=== PATIENT | female | born 1975 | race African-American/Black ===

== ENCOUNTER 2022-07-29 06:33 | Observation (INO) | payer BC ==
[2022-07-29 06:49] VITALS: BMI 45.1
[2022-07-29] MEDS ORDERED: ADENOSINE 6 MG/2 ML VIAL IVPUSH ONE ×3 (06:53→06:54)
[2022-07-29] MEDS ORDERED: MAGNESIUM 1GM/D5W - 1 GM/100 ML IVPB IVPB ONE (07:14)
[2022-07-29] MEDS ORDERED: SODIUM CHLORIDE 0.9% 500 ML INFUS.BAG IV ONE (07:18)
[2022-07-29 07:25] LABS: HEMATOCRIT 27.1 % (32.4-45.2); HEMOGLOBIN 8.1 GM/dL (10.7-15.3); MCHC 29.9 g/dl (32.0-36.0); MEAN CELL VOLUME 64.5 fl (80-96); MEAN PLT VOLUME 8.4 fl (7.5-11.1); PLATELET COUNT 66 10^3/uL (134-434); RDW 23.6 % (11.6-15.6); WHITE BLOOD COUNT 6.3 K/mm3 (4.0-10.0)
[2022-07-29 07:30] LABS: MCH 19.3 pg (25.7-33.7)
[2022-07-29] MEDS ORDERED: FOLIC ACID INJECTION - 1 MG, THIAMINE HCL 100 MG, MULTIVIT INJECTION ADULT 10 ML in SOD... IVPB ONE (07:36)
[2022-07-29 07:37] LABS: INR 0.91 (0.83-1.09); PROTHROMBIN TIME (PATIENT) 10.6 SEC (9.7-13.0)
[2022-07-29 07:40] LABS: ACTIVATED PTT 22.6 SECONDS (25.2-36.5)
[2022-07-29 07:41] LABS: CHLORIDE 104 mmol/L (98-107); POTASSIUM 5.2 mmol/L (3.5-5.1); SODIUM 138 mmol/L (136-145)
[2022-07-29 07:43] LABS: CALCIUM 9.2 mg/dL (8.5-10.1)
[2022-07-29 07:44] LABS: ALBUMIN 3.6 g/dl (3.4-5.0); ANION GAP 11 MMOL/L (8-16); BLOOD UREA NITROGEN 11.9 mg/dL (7-18); CO2 23 mmol/L (21-32); GLUCOSE,RANDOM 130 mg/dL (74-106); MAGNESIUM 1.5 mg/dL (1.8-2.4)
[2022-07-29 07:46] LABS: SGPT/ALT 31 U/L (13-61)
[2022-07-29 07:47] LABS: CREATININE 0.8 mg/dL (0.55-1.3); SGOT/AST 56 U/L (15-37)
[2022-07-29 07:48] LABS: BILIRUBIN,TOTAL 0.4 mg/dL (0.2-1)
[2022-07-29 07:49] LABS: ALK PHOS 66 U/L (45-117)
[2022-07-29 07:52] LABS: N-TERMINAL BNP 360.8 pg/ml (5-125)
[2022-07-29 08:37] LABS: COCAINE, UR NEGATIVE (NEGATIVE); OPIATES, URI NEGATIVE (NEGATIVE)
[2022-07-29 08:38] LABS: METHADONE, UR NEGATIVE (NEGATIVE); PHENCYCLIDINE,URINE NEGATIVE (NEGATIVE); URINE BARBITURATES NEGATIVE (NEGATIVE); URINE BENZODIAZEPINES NEGATIVE (NEGATIVE)
[2022-07-29 08:40] LABS: URINE AMPHETAMINES NEGATIVE (NEGATIVE)
[2022-07-29] MEDS ORDERED: LORazepam 1 MG TABLET PO PRN (11:20)
[2022-07-29] MEDS ORDERED: metoPROLOL SUCCINATE 25 MG TAB.SR.24H (FP) PO SCH (11:20)
[2022-07-29] MEDS ORDERED: ASPIRIN 81 MG CHEWABLE TABLETS PO SCH (11:30)
[2022-07-29] MEDS ORDERED: MAGNESIUM SULF 50% (8.12 MEQ/2 ML-1 GM VIAL) IVPB ONE (12:28)
[2022-07-29] MEDS ORDERED: metoPROLOL SUCCINATE 25 MG TAB.SR.24H (FP) PO ONE (13:39)
[2022-07-29] MEDS ORDERED: ASPIRIN 81 MG CHEWABLE TABLETS ONE (13:39)
[2022-07-29 13:40] VITALS: BP 152/80; RESP 20; TEMP 98.2
[2022-07-29] MEDS ORDERED: MAGNESIUM SULFATE IN WATER 2 GM/50 ML IVPB IVPB ONE (13:40)
[2022-07-29 13:51] VITALS: PULSE 65
[2022-07-29] MEDS ORDERED: ENOXAPARIN NA (PORCINE) 40 MG/0.4 ML DISP.SYRIN SQ SCH (22:00)
[2022-07-30] MEDS ORDERED: ASPIRIN COATED 81 MG TABLET.EC PO SCH (10:00)
== END 2022-07-29 13:22 | disposition short-term general hospital (02) ==
LOC: JER 06:33 → JERBED 07:59
PROVIDERS: ADMIT Internal Medicine; ATTEND Internal Medicine
PROC: 3E033GC Introduction of Other Therapeutic Substance into Peripheral Vein, Percutaneous Approach (ICD-10-PCS; principal; 2022-07-29)
PROC: 3E0337Z Introduction of Electrolytic and Water Balance Substance into Peripheral Vein, Percutaneous Approach (ICD-10-PCS; 2022-07-29)
DX: I49.9 Cardiac arrhythmia, unspecified (principal); R00.0 Tachycardia, unspecified; F10.129 Alcohol abuse with intoxication, unspecified; R00.2 Palpitations; Z98.84 Bariatric surgery status; E66.01 Morbid (severe) obesity due to excess calories; Z68.42 Body mass index [BMI] 45.0-49.9, adult; H53.8 Other visual disturbances; R53.1 Weakness
CPT/HCPCS: 0241U-QW; 36415; 70450-TC; 71045-TC-FY; 72125-TC; 80053; 80307; 82962; 83735; 83880; 84100; 84484; 84703; 85027; 85045; 85610; 85730; 93005; 93010; 93306-TC; 93880-TC; 96365; 96367; 96375; 99291; G0378

== ENCOUNTER 2022-07-30 21:24 | Inpatient (IN) | payer BC, OTHER ==
[2022-07-30 22:11] VITALS: BMI 45.1
[2022-07-30] MEDS ORDERED: guaiFENesin 600 MG TABLET.ER (FP) PO PRN (23:24)
[2022-07-30] MEDS ORDERED: P-EPHED 60MG/TRIPROLIDI 2.5MG TABLET PO PRN (23:24)
[2022-07-30] MEDS ORDERED: BISMUTH SUBSALICYLATE 524 MG/30 ML PO PRN (23:24)
[2022-07-30] MEDS ORDERED: MAG HYDROX/AL HYDROX/SIMETH 30 ML UNIT-DOSE CUP PO PRN (23:24)
[2022-07-30] MEDS ORDERED: POLYETHYLENE GLYCOL (HEALTHYLAX) 3350 17 GM PACKET PO PRN (23:24)
[2022-07-30] MEDS ORDERED: BENZONATATE 200 MG CAPSULE PO PRN (23:24)
[2022-07-30] MEDS ORDERED: LOPERAMIDE HCL 2 MG CAPSULE PO PRN (23:24)
[2022-07-30] MEDS ORDERED: DICYCLOMINE HCL 10 MG CAPSULE PO PRN (23:24)
[2022-07-30] MEDS ORDERED: MAGNESIUM HYDROX 2400MG/30ML ORAL SUSPENSION 30 ML CUP PO PRN (23:24)
[2022-07-30] MEDS ORDERED: BENZOCAINE/MENTHOL (CHLORASEPTIC ) LOZENGE MM PRN (23:24)
[2022-07-30] MEDS ORDERED: IBUPROFEN 600 MG TABLET (FP) PO PRN (23:24)
[2022-07-30] MEDS ORDERED: METHOCARBAMOL 500 MG TABLET PO PRN (23:24)
[2022-07-30] MEDS ORDERED: ACETAMINOPHEN 325 MG TABLET (FP) PO PRN ×2 (23:24)
[2022-07-30] MEDS ORDERED: IBUPROFEN 400 MG TABLET (FP) PO PRN (23:24)
[2022-07-30] MEDS ORDERED: ONDANSETRON *ODT* 4 MG TABLET SL PRN (23:24)
[2022-07-30] MEDS ORDERED: chlordiazePOXIDE HCL 25 MG CAPSULE PO PRN (23:27)
[2022-07-31] MEDS: chlordiazePOXIDE HCL 25 MG CAPSULE PO SCH ×4 (05:50→22:16)
[2022-07-31] MEDS: PRENATAL VITAMINS W/ FOLIC ACID TABLET (FP) PO SCH (10:37)
[2022-07-31] MEDS: metoPROLOL SUCCINATE 25 MG TAB.SR.24H (FP) PO SCH (11:33)
[2022-07-31] MEDS: MELATONIN 5 MG TABLETS PO PRN (22:15)
[2022-07-31] MEDS: THIAMINE HCL 100 MG TABLET (FP) PO SCH (22:15)
[2022-08-01] MEDS: chlordiazePOXIDE HCL 25 MG CAPSULE PO SCH ×5 (05:36→22:14)
[2022-08-01] MEDS: PRENATAL VITAMINS W/ FOLIC ACID TABLET (FP) PO SCH (10:17)
[2022-08-01] MEDS: FERROUS SO4 325 MG TABLET (FP) PO SCH (10:17)
[2022-08-01] MEDS: metoPROLOL SUCCINATE 25 MG TAB.SR.24H (FP) PO SCH (10:19)
[2022-08-01] MEDS: MELATONIN 5 MG TABLETS PO PRN (22:14)
[2022-08-01] MEDS: THIAMINE HCL 100 MG TABLET (FP) PO SCH (22:14)
[2022-08-02] MEDS ORDERED: chlordiazePOXIDE HCL 10 MG CAPSULE PO PRN
[2022-08-02] MEDS: chlordiazePOXIDE HCL 10 MG CAPSULE PO SCH ×4 (05:13→22:12)
[2022-08-02] MEDS: PRENATAL VITAMINS W/ FOLIC ACID TABLET (FP) PO SCH (10:31)
[2022-08-02] MEDS: metoPROLOL SUCCINATE 25 MG TAB.SR.24H (FP) PO SCH (10:31)
[2022-08-02] MEDS: FERROUS SO4 325 MG TABLET (FP) PO SCH (10:31)
[2022-08-02] MEDS: MAGNESIUM OXIDE 400 MG TABLET (FP) PO SCH ×2 (11:56→22:13)
[2022-08-02] MEDS: THIAMINE HCL 100 MG TABLET (FP) PO SCH (22:12)
[2022-08-02] MEDS: MELATONIN 5 MG TABLETS PO PRN (22:12)
[2022-08-03] MEDS ORDERED: chlordiazePOXIDE HCL 10 MG CAPSULE PO SCH (05:00)
[2022-08-03] MEDS ORDERED: chlordiazePOXIDE HCL 10 MG CAPSULE PO ONE (05:00)
[2022-08-03 06:28] VITALS: BP 112/67; PULSE 65; RESP 17; TEMP 97.6
[2022-08-04] MEDS ORDERED: chlordiazePOXIDE HCL 10 MG CAPSULE PO ONE (05:00)
== END 2022-08-03 07:35 | disposition home or self-care (01) | DRG 897 ==
LOC: YASAS 21:24 → Y6N 23:25
PROVIDERS: ADMIT Allergy & Immunology; ATTEND Surgery
PROC: HZ2ZZZZ Detoxification Services for Substance Abuse Treatment (ICD-10-PCS; principal; 2022-07-31)
DX: F10.230 Alcohol dependence with withdrawal, uncomplicated (principal); F10.282 Alcohol dependence with alcohol-induced sleep disorder; F10.24 Alcohol dependence with alcohol-induced mood disorder; F41.9 Anxiety disorder, unspecified; D69.6 Thrombocytopenia, unspecified; D64.9 Anemia, unspecified; I49.9 Cardiac arrhythmia, unspecified; M54.50 Low back pain, unspecified; G89.29 Other chronic pain; R73.9 Hyperglycemia, unspecified
CPT/HCPCS: 81025

== ENCOUNTER 2022-12-24 09:03 | Observation (INO) | payer BC, OTHER ==
[2022-12-24 09:13] VITALS: BMI 45.1
[2022-12-24 10:24] LABS: BASO % 1.3 % (0-2.0); EOS % 0.9 % (0-4.5); HEMOGLOBIN 12.2 GM/dL (10.7-15.3); LYMPH % 34.3 % (8-40); MCH 27.1 pg (25.7-33.7); MEAN CELL VOLUME 82.2 fl (80-96); MEAN PLT VOLUME 8.3 fl (7.5-11.1); MONO % 7.4 % (3.8-10.2); NEUT % 56.1 % (42.8-82.8); PLATELET COUNT 252 10^3/uL (134-434); RBC 4.51 M/mm3 (3.60-5.2); RDW 24.3 % (11.6-15.6); WHITE BLOOD COUNT 5.5 K/mm3 (4.0-10.0)
[2022-12-24 10:32] LABS: CO2 30 mmol/L (21-32); MAGNESIUM 1.9 mg/dL (1.8-2.4)
[2022-12-24 10:34] LABS: ACTIVATED PTT 26.1 SECONDS (25.2-36.5); INR 0.94 (0.83-1.09); PROTHROMBIN TIME (PATIENT) 10.9 SEC (9.7-13.0)
[2022-12-24 10:35] LABS: ALBUMIN 3.6 g/dl (3.4-5.0); BLOOD UREA NITROGEN 12.7 mg/dL (7-18); CALCIUM 9.6 mg/dL (8.5-10.1); GLUCOSE,RANDOM 113 mg/dL (74-106)
[2022-12-24 10:37] LABS: CREATININE 0.8 mg/dL (0.55-1.3); SGOT/AST 32 U/L (15-37); SGPT/ALT 42 U/L (13-61)
[2022-12-24 10:38] LABS: CHOLESTEROL 174 mg/dL (50-200)
[2022-12-24 10:39] LABS: LDL CHOLESTEROL (ONLY SJRH) 45 mg/dL (5-100)
[2022-12-24 10:40] LABS: BILIRUBIN,TOTAL 0.3 mg/dL (0.2-1)
[2022-12-24 10:41] LABS: ALK PHOS 74 U/L (45-117); HDL CHOLESTEROL 114 mg/dL (40-60)
[2022-12-24 11:09] LABS: ANISOCYTOSIS 3+; MACROCYTOSIS 1+
[2022-12-24 11:15] LABS: ERYTHROCYTE SEDIMENTATION RATE 22 mm/hr (0-20)
[2022-12-24 11:19] LABS: ANION GAP 6 MMOL/L (8-16); CHLORIDE 99 mmol/L (98-107); POTASSIUM 4.5 mmol/L (3.5-5.1); SODIUM 135 mmol/L (136-145)
[2022-12-24 11:23] LABS: PH,URINE 7.5 (5.0-8.0); URINE APPEARANCE CLEAR; URINE BILIRUBIN NEGATIVE (NEGATIVE); URINE COLOR YELLOW; URINE GLUCOSE (UA) NEGATIVE (NEGATIVE); URINE KETONE NEGATIVE (NEGATIVE); URINE LEUK ESTERASE NEGATIVE (NEGATIVE); URINE NITRITE NEGATIVE (NEGATIVE); URINE PROTEIN NEGATIVE (NEGATIVE); URINE UROBILINOGEN 0.2 mg/dL (0.2-1.0)
[2022-12-24] MEDS ORDERED: LACTATED RINGERS SOLUTION 1000 ML INFUS.BAG IV ONE (11:23)
[2022-12-24] MEDS ORDERED: MECLIZINE HCL 25 MG TABLET (FP) PO ONE (11:23)
[2022-12-24] MEDS ORDERED: MECLIZINE HCL 12.5 MG TABLET ONE (11:39)
[2022-12-24] MEDS ORDERED: METOCLOPRAMIDE HCL INJECTION 10 MG/2 ML VIAL ONE (11:45)
[2022-12-24] MEDS ORDERED: ACETAMINOPHEN INJECTION 100 ML IVPB ONE (11:45)
[2022-12-24] MEDS ORDERED: METOCLOPRAMIDE HCL INJECTION 10 MG/2 ML VIAL IVPB ONE (11:52)
[2022-12-24] MEDS ORDERED: ACETAMINOPHEN 1000 MG/100 ML BAG IVPB ONE (11:52)
[2022-12-24] MEDS: ENOXAPARIN NA (PORCINE) 40 MG/0.4 ML DISP.SYRIN SQ SCH (23:23)
[2022-12-25] MEDS ORDERED: ADENOSINE 6 MG/2 ML VIAL IVPUSH ONE ×2 (06:39→07:05)
[2022-12-25] MEDS ORDERED: SODIUM CHLORIDE 1,000 ML IV STA (07:07)
[2022-12-25] MEDS: METOPROLOL TARTRATE 25 MG TABLET (FP) PO SCH ×2 (07:11→21:57)
[2022-12-25 08:16] LABS: BASO % 1.2 % (0-2.0); EOS % 2.5 % (0-4.5); HEMATOCRIT 40.4 % (32.4-45.2); HEMOGLOBIN 12.7 GM/dL (10.7-15.3); LYMPH % 30.4 % (8-40); MCH 26.5 pg (25.7-33.7); MCHC 31.5 g/dl (32.0-36.0); MEAN CELL VOLUME 84.1 fl (80-96); MEAN PLT VOLUME 8.4 fl (7.5-11.1); MONO % 4.6 % (3.8-10.2); NEUT % 61.3 % (42.8-82.8); PLATELET COUNT 246 10^3/uL (134-434); RBC 4.81 M/mm3 (3.60-5.2); WHITE BLOOD COUNT 5.4 K/mm3 (4.0-10.0)
[2022-12-25 08:34] LABS: POTASSIUM 3.6 mmol/L (3.5-5.1)
[2022-12-25 08:37] LABS: CALCIUM 8.7 mg/dL (8.5-10.1)
[2022-12-25 08:38] LABS: ALBUMIN 3.4 g/dl (3.4-5.0)
[2022-12-25 08:39] LABS: BLOOD UREA NITROGEN 13.2 mg/dL (7-18)
[2022-12-25 08:40] LABS: PHOSPHOROUS 3.6 mg/dL (2.5-4.9)
[2022-12-25 08:41] LABS: CREATININE 0.7 mg/dL (0.55-1.3)
[2022-12-25 08:43] LABS: BILIRUBIN,TOTAL 0.5 mg/dL (0.2-1); TOT PROT 7.4 g/dl (6.4-8.2)
[2022-12-25] MEDS ORDERED: ENOXAPARIN NA (PORCINE) 40 MG/0.4 ML DISP.SYRIN SQ SCH (10:00)
[2022-12-25] MEDS: [UNRECOGNIZED DRUG - OTHER] PO SCH (10:13)
[2022-12-25] MEDS: ENOXAPARIN NA (PORCINE) 40 MG/0.4 ML DISP.SYRIN SQ SCH ×2 (10:13→21:57)
[2022-12-25] MEDS: PRAMIPEXOLE DIHYDROCHLORIDE 0.25 MG TABLET PO SCH (23:34)
[2022-12-25] MEDS: TOPIRAMATE 25 MG TABLET PO SCH (23:34)
[2022-12-26 06:35] VITALS: PULSE 62
[2022-12-26 08:21] LABS: IRON SERUM 75 ug/dL (50-175)
[2022-12-26 08:22] LABS: TOTAL IRON BINDING CAPACITY 479 ug/dL (250-450)
[2022-12-26] MEDS: ENOXAPARIN NA (PORCINE) 40 MG/0.4 ML DISP.SYRIN SQ SCH (09:47)
[2022-12-26] MEDS: METOPROLOL TARTRATE 25 MG TABLET (FP) PO SCH (09:48)
[2022-12-26] MEDS: PRAMIPEXOLE DIHYDROCHLORIDE 0.25 MG TABLET PO SCH (09:48)
[2022-12-26] MEDS: TOPIRAMATE 25 MG TABLET PO SCH (09:48)
[2022-12-26] MEDS: [UNRECOGNIZED DRUG - OTHER] PO SCH (09:49)
[2022-12-26 13:32] VITALS: BP 143/86; RESP 16; TEMP 98.2
== END 2022-12-26 14:20 | disposition home or self-care (01) ==
LOC: JER 09:03 → JERBED 11:29 → J4S 16:28 → J4W 12-25 23:29
PROVIDERS: ADMIT Internal Medicine; ATTEND Internal Medicine
PROC: 3E033NZ Introduction of Analgesics, Hypnotics, Sedatives into Peripheral Vein, Percutaneous Approach (ICD-10-PCS; principal; 2022-12-24)
PROC: 3E033GC Introduction of Other Therapeutic Substance into Peripheral Vein, Percutaneous Approach (ICD-10-PCS; 2022-12-24)
PROC: 3E0337Z Introduction of Electrolytic and Water Balance Substance into Peripheral Vein, Percutaneous Approach (ICD-10-PCS; 2022-12-24)
DX: G43.109 Migraine with aura, not intractable, without status migrainosus (principal); I47.10 Supraventricular tachycardia, unspecified; F10.21 Alcohol dependence, in remission; G25.81 Restless legs syndrome; D50.9 Iron deficiency anemia, unspecified; H53.149 Visual discomfort, unspecified; Z98.84 Bariatric surgery status; N89.8 Other specified noninflammatory disorders of vagina; Z90.49 Acquired absence of other specified parts of digestive tract; G89.29 Other chronic pain; M54.50 Low back pain, unspecified
CPT/HCPCS: 36415; 70450-TC; 70544-TC; 70553-TC; 80053; 80061; 81003; 82550; 82607; 83036; 83540; 83550; 83735; 84100; 84484; 84703; 85025; 85610; 85651; 85730; 86140; 93005; 93010; 93306-TC; 97116-GP; 97161-GP; 99285-25; G0378